=== PATIENT | male | born 1970 | race Caucasian/White ===

== ENCOUNTER 2024-10-21 13:17 | Inpatient (IN) | payer OTHER ==
[~2024-10-21] VITALS: Ht 167.6 cm; Wt 72.6 kg
[2024-10-21] MEDS ORDERED: diphenhydrAMINE 50 MG/1 ML VIAL ONE (13:44)
[2024-10-21] MEDS ORDERED: LORAZEPAM 2 MG/1 ML VIAL ONE (13:44)
[2024-10-21] MEDS: LORAZEPAM 2 MG/1 ML VIAL IM ONE (13:49)
[2024-10-21] MEDS: diphenhydrAMINE 50 MG/1 ML VIAL IM ONE (13:49)
[2024-10-21] MEDS ORDERED: LIDO35.4 TP (13:57)
[2024-10-21] MEDS ORDERED: METH-807 PO (13:57)
[2024-10-21] MEDS ORDERED: OLAN10TA73 PO (13:57)
[2024-10-21] MEDS ORDERED: CELE-85 PO (13:57)
[2024-10-21] MEDS ORDERED: DICL100G31 (13:57)
[2024-10-21] MEDS ORDERED: GABA1TAB3 PO (13:57)
[2024-10-21 14:27] LABS: BASOPHILS # (AUTO) 0.1 K/UL (0.0-0.2); BASOPHILS % (AUTO) 1.1 % (0.0-2.0); CALCIUM 9.1 mg/dL (8.5-10.1); CARBON DIOXIDE 24 mmol/L (21-32); CHLORIDE 107 mmol/L (98-107); CREATININE 1.2 mg/dL (0.6-1.3); EOSINOPHILS # (AUTO) 0.9 K/uL (0.0-0.7); EOSINOPHILS % (AUTO) 8.7 % (0.0-7.0); GLUCOSE 99 mg/dL (74-106); HEMATOCRIT 39.4 % (36.7-47.1); HEMOGLOBIN 13.3 g/dL (12.5-16.3); LYMPHOCYTES # (AUTO) 1.8 K/uL (0.8-4.8); LYMPHOCYTES % (AUTO) 18.4 % (20.5-51.5); MEAN CORPUSCULAR HGB CONC 34 g/dL (32.5-36.3); MEAN CORPUSCULAR VOLUME 91.9 fL (73.0-96.2); MONOCYTES # (AUTO) 1.3 K/uL (0.1-1.30); MONOCYTES % (AUTO) 12.8 % (0.0-11.0); NEUTROPHILS # (AUTO) 5.8 K/uL (1.8-8.9); PLATELET COUNT (AUTO) 323 K/uL (152-348); POTASSIUM 4.5 mmol/L (3.5-5.1); RED BLOOD CELL COUNT(AUTO) 4.29 MIL/uL (4.06-5.63); RED CELL DISTRIBUTION WIDTH 14.2 % (12.1-16.2); SODIUM SERUM 141 mmol/L (136-145); UREA NITROGEN, BLOOD 26 mg/dL (7-18); WHITE BLOOD COUNT (AUTO) 9.9 K/uL (3.6-10.2)
[2024-10-21 14:28] LABS: DIFFERENTIAL COMMENT 1
[2024-10-21] MEDS ORDERED: LIDOCAINE 2% (GLYDO= UROJET) 10 ML JELLY MM ONE (14:28)
[2024-10-21 14:33] LABS: ETHANOL < 3 MG/DL (0-10)
[2024-10-21] MEDS: HYDROMORPHONE 1 MG/1 ML DISP.SYRIN IM ONE (14:35)
[2024-10-21] MEDS ORDERED: HYDROMORPHONE 1 MG/1 ML DISP.SYRIN ONE (14:36)
[2024-10-21 14:40] LABS: ACETAMINOPHEN < 2.0 ug/mL (10-30); ALANINE AMINOTRANSFERASE 22 U/L (16-63); ALBUMIN 3.1 g/dL (3.4-5.0); ALKALINE PHOSPHATASE 100 U/L (50-136); ASPARTATE AMINOTRANSFERASE 35 U/L (15-37); BILIRUBIN,DIRECT 0.2 mg/dL (0.0-0.2); BILIRUBIN,TOTAL 0.8 mg/dL (0.2-1.0); TOTAL PROTEIN, SERUM 7.3 g/dL (6.4-8.2)
[2024-10-21] MEDS: LIDOCAINE 2% (GLYDO= UROJET) 10 ML JELLY MM ONE (14:42)
[2024-10-21 14:53] LABS: *BILIRUBIN,URIN NEGATIVE (NEGATIVE); *CLARITY,URINE CLEAR (CLEAR); *COLOR,URINE YELLOW (YELLOW); *KETONES,URINE NEGATIVE (NEGATIVE); *PROTEIN,URINE 1+ (NEGATIVE); *UROBILINOGEN,URINE 0.2 E.U./dl (NORMAL); LEUKOCYTE ESTERASE ,URINE NEGATIVE (NEGATIVE); NITRITE, URINE NEGATIVE (NEGATIVE); UGLUCOSE NEGATIVE (NEGATIVE)
[2024-10-21 14:54] LABS: *BLOOD, URINE TRACE (NEGATIVE)
[2024-10-21 15:00] LABS: BACTERIA,URINE FEW /HPF (NONE SEEN); SQUAMOUS EPITHELIAL CELL,UR FEW /HPF (NONE SEEN); WBC,URINE 0-3 /HPF (0-3)
[2024-10-21 15:05] LABS: *AMPHETAMINE, URINE POSITIVE (NEGATIVE); *BARBITURATE, URINE NEGATIVE (NEGATIVE); *BENZODIAZEPINE, URINE NEGATIVE (NEGATIVE); *CANNABINOID, URINE NEGATIVE (NEGATIVE); *COCCAINE, URINE NEGATIVE (NEGATIVE); *OPIATE, URINE POSITIVE (NEGATIVE); *PHENCYCLIDINE SCREEN,URINE POSITIVE (NEGATIVE); FENTANYL, URINE POSITIVE (NEGATIVE)
[2024-10-21] MEDS ORDERED: THIAMINE HCL 100 MG TABLET ONE (18:04)
[2024-10-22] MEDS ORDERED: MIDAZOLAM HCL 2 MG/2 ML VIAL ONE ×2 (01:23→05:59)
[2024-10-22] MEDS ORDERED: OLANZAPINE 10 MG VIAL IM ONE (01:23)
[2024-10-22] MEDS: MIDAZOLAM HCL 2 MG/2 ML VIAL IM ONE (01:41)
[2024-10-22] MEDS: OLANZAPINE 10 MG VIAL IM ONE (01:41)
[2024-10-22] MEDS ORDERED: MAGNESIUM HYDROXIDE 30 ML LIQUID UDC PO PRN (04:45)
[2024-10-22] MEDS ORDERED: IV NS 1000 ML 1,000 ML IV SCH (04:45)
[2024-10-22] MEDS ORDERED: ONDANSETRON 4 MG/2 ML VIAL IV PRN (04:45)
[2024-10-22] MEDS ORDERED: LABETALOL HCL 100 MG/20 ML VIAL ONE (05:09)
[2024-10-22] MEDS: LABETALOL HCL 100 MG/20 ML VIAL IV ONE ×2 (05:19→06:17)
[2024-10-22] MEDS: IV D5/ 0.9% NACL 1,000 ML IV PRN (05:35)
[2024-10-22 05:55] LABS: BASOPHILS # (AUTO) 0.1 K/UL (0.0-0.2); BASOPHILS % (AUTO) 0.6 % (0.0-2.0); EOSINOPHILS # (AUTO) 0.1 K/uL (0.0-0.7); EOSINOPHILS % (AUTO) 1.3 % (0.0-7.0); HEMOGLOBIN 13.9 g/dL (12.5-16.3); LYMPHOCYTES # (AUTO) 1.3 K/uL (0.8-4.8); LYMPHOCYTES % (AUTO) 13.2 % (20.5-51.5); MEAN CORPUSCULAR HEMOGLOBIN 30.9 uug (23.8-33.4); MEAN CORPUSCULAR HGB CONC 34 g/dL (32.5-36.3); MEAN CORPUSCULAR VOLUME 91.2 fL (73.0-96.2); MONOCYTES % (AUTO) 9.6 % (0.0-11.0); NEUTROPHILS # (AUTO) 7.6 K/uL (1.8-8.9); NEUTROPHILS % (AUTO) 75.3 % (38.5-71.5); PLATELET COUNT (AUTO) 330 K/uL (152-348); RED CELL DISTRIBUTION WIDTH 14.4 % (12.1-16.2); WHITE BLOOD COUNT (AUTO) 10.1 K/uL (3.6-10.2)
[2024-10-22 05:59] LABS: DIFFERENTIAL COMMENT 1
[2024-10-22] MEDS: MIDAZOLAM HCL 2 MG/2 ML VIAL IV ONE (06:06)
[2024-10-22 06:07] LABS: CALCIUM 8.7 mg/dL (8.5-10.1); CREATININE 1.1 mg/dL (0.6-1.3); PHOSPHOROUS 2.9 mg/dL (2.5-4.9)
[2024-10-22] MEDS: PANTOPRAZOLE SODIUM 40 MG TABLET.DR PO SCH (07:00)
[2024-10-22] MEDS ORDERED: hydrALAZINE HCL 20 MG/1 ML VIAL ONE (07:32)
[2024-10-22] MEDS: hydrALAZINE HCL 20 MG/1 ML VIAL IV ONE (07:32)
[2024-10-22] MEDS ORDERED: LORAZEPAM 2 MG/1 ML VIAL ONE (08:29)
[2024-10-22] MEDS: LORAZEPAM 2 MG/1 ML VIAL IM PRN (08:35)
[2024-10-22] MEDS ORDERED: HALOPERIDOL LACTATE 5 MG/1 ML VIAL ONE (08:50)
[2024-10-22] MEDS ORDERED: diphenhydrAMINE 50 MG/1 ML VIAL ONE (08:50)
[2024-10-22] MEDS: HALOPERIDOL LACTATE 5 MG/1 ML VIAL IM ONE (08:52)
[2024-10-22] MEDS: diphenhydrAMINE 50 MG/1 ML VIAL IM ONE (08:52)
[2024-10-22] MEDS: THIAMINE HCL 100 MG TABLET PO SCH (09:00)
[2024-10-22] MEDS: FOLIC ACID 1 MG TABLET PO SCH (09:00)
[2024-10-22] MEDS: MULTIVITAMINS,THERAPEUTIC TABLET PO SCH (09:00)
[2024-10-22 10:05] VITALS: BP 145/82; TEMP 98; O2SAT 98
[2024-10-22] MEDS: CLONIDINE HCL 0.1 MG TABLET PO SCH (13:00)
[2024-10-22] MEDS: GABAPENTIN 100 MG CAPSULE PO SCH (13:00)
[2024-10-22 13:20] VITALS: BP 142/86; TEMP 98; O2SAT 98
[2024-10-22] MEDS: HALOPERIDOL LACTATE 5 MG/1 ML VIAL IM PRN (15:59)
[2024-10-22 16:36] VITALS: BP 157/92; TEMP 97.5; O2SAT 96
[2024-10-22 17:00] VITALS: BP 140/75; TEMP 98; O2SAT 96
[2024-10-22] MEDS: OLANZAPINE 5 MG TABLET PO SCH (17:08)
[2024-10-22 19:20] VITALS: BP 140/95; TEMP 98.2; O2SAT 97
[2024-10-23 00:28] VITALS: BP 131/87; TEMP 98.4; O2SAT 97
[2024-10-23 04:39] VITALS: BP 121/86; TEMP 97.9; O2SAT 93
[2024-10-23 07:11] LABS: BASOPHILS # (AUTO) 0.1 K/UL (0.0-0.2); BASOPHILS % (AUTO) 0.9 % (0.0-2.0); EOSINOPHILS # (AUTO) 0.4 K/uL (0.0-0.7); EOSINOPHILS % (AUTO) 5.5 % (0.0-7.0); HEMATOCRIT 44.2 % (36.7-47.1); HEMOGLOBIN 14.4 g/dL (12.5-16.3); LYMPHOCYTES # (AUTO) 1.4 K/uL (0.8-4.8); LYMPHOCYTES % (AUTO) 18.6 % (20.5-51.5); MEAN CORPUSCULAR HEMOGLOBIN 30.7 uug (23.8-33.4); MEAN CORPUSCULAR HGB CONC 33 g/dL (32.5-36.3); MONOCYTES # (AUTO) 0.8 K/uL (0.1-1.30); NEUTROPHILS # (AUTO) 4.9 K/uL (1.8-8.9); PLATELET COUNT (AUTO) 318 K/uL (152-348); RED CELL DISTRIBUTION WIDTH 14.5 % (12.1-16.2); WHITE BLOOD COUNT (AUTO) 7.7 K/uL (3.6-10.2)
[2024-10-23 07:27] LABS: CALCIUM 8.8 mg/dL (8.5-10.1); DIFFERENTIAL COMMENT 1; POTASSIUM 4.1 mmol/L (3.5-5.1)
[2024-10-23 07:49] VITALS: BP 171/102; TEMP 97.9; O2SAT 93
[2024-10-23] MEDS: ACETAMINOPHEN 325 MG TABLET PO PRN (10:02)
[2024-10-23] MEDS: CELECOXIB 200 MG CAPSULE PO SCH (10:02)
[2024-10-23 12:00] VITALS: BP 142/83; TEMP 98; O2SAT 95
[2024-10-23 16:24] VITALS: BP 156/89; TEMP 98.9; O2SAT 96
[2024-10-23 19:10] VITALS: BP 110/70; TEMP 98.2; O2SAT 94
[2024-10-24 00:37] VITALS: BP 136/94; TEMP 98; O2SAT 96
[2024-10-24 04:43] VITALS: TEMP 98.1; O2SAT 97
[2024-10-24 07:31] VITALS: BP 151/91; TEMP 97.5; O2SAT 98
[2024-10-24] MEDS: HALOPERIDOL 5 MG TABLET PO PRN (08:10)
[2024-10-24 11:32] VITALS: BP 133/88; TEMP 98.3; O2SAT 97
[2024-10-24 15:48] VITALS: BP 103/62; TEMP 98.8; O2SAT 97
[2024-10-24 19:30] VITALS: BP 130/92; TEMP 98; O2SAT 96
[2024-10-25 04:35] VITALS: BP 135/79; TEMP 97.6; O2SAT 96
[2024-10-25 08:35] VITALS: BP 140/78
== END 2024-10-25 09:40 | disposition home or self-care (01) | DRG 812 ==
LOC: ER 13:17 → TELE3 10-22 09:09 → MEDSURG3 10-24 13:30
PROVIDERS: ATTEND Nurse Practitioner Acute Care
DX: T40.411A Poisoning by fentanyl or fentanyl analogs, accidental (unintentional), initial encounter (principal); G93.41 Metabolic encephalopathy; R45.851 Suicidal ideations; E88.09 Other disorders of plasma-protein metabolism, not elsewhere classified; T40.991A Poisoning by other psychodysleptics [hallucinogens], accidental (unintentional), initial encounter; T43.651A Poisoning by methamphetamines accidental (unintentional), initial encounter; F11.13 Opioid abuse with withdrawal; F16.10 Hallucinogen abuse, uncomplicated; R39.2 Extrarenal uremia; Y92.410 Unspecified street and highway as the place of occurrence of the external cause; F39 Unspecified mood [affective] disorder; F15.10 Other stimulant abuse, uncomplicated; Z78.1 Physical restraint status; Z88.1 Allergy status to other antibiotic agents; G89.29 Other chronic pain; Z59.00 Homelessness unspecified; I10 Essential (primary) hypertension; R73.9 Hyperglycemia, unspecified; R09.02 Hypoxemia
CPT/HCPCS: 36415; 71045; 83735; 84100; 85025; 98960; A4606; A4663; C1758; G0378; G0480; J0360; J1171; J1200; J1630; J2060; J2250; J2358; J3490; J7042